=== PATIENT | male | born 1980 | race Hispanic/Latino ===

== ENCOUNTER → 2025-02-02 | Day surgery (SDC) | payer OTHER ==
[~2025-02-02] MED LIST: APRISO0.375 GM PO; FENTANYL CITRATE/PF 100MCG/2 ML INJ ONE; GLUCAGON FOR INJ 1 MG VIAL ONE; HYDROCORTISONE SOD SUCCINATE 100 MG VIAL ONE; HYOSCYAMINE SULFATE 0.5 MG/ML INJ ONE; IMMODIUM PO; LACTATED RINGER'S 1,000 ML ONE; LIDOCAINE HCL 2% LOCAL INJ 5 ML SDV VIAL INJ ONE; MESALAMINE1.2 GM PO; PROPOFOL IV EMULSION 10 MG/ML 20 ML VIAL ONE; PROPOFOL IV EMULSION 50 ML IV ONE; Z.0.ASACOL400 MG PO; Z.0.IMURAN50 MG PO
[2025-02-02 13:28] VITALS: TEMP 98.2
[2025-02-02 13:40] VITALS: BP 120/72
[2025-02-02 13:55] VITALS: PULSE 84; RESP 18; O2SAT 97
[2025-02-02 14:24] LABS: BASOPHILS % 0.2 % (0.0-1.0); EOSINOPHILS # (AUTO) 0.1 (0.0-0.4); EOSINOPHILS % 0.8 % (0.0-6.0); HEMATOCRIT 32.5 % (38.2-49.6); HEMOGLOBIN 9.3 g/dL (14.0-18.0); LYMPHOCYTES # (AUTO) 0.7 (1.0-3.2); MEAN CORPUSCULAR HEMOGLOBIN 20.4 pg (28-32); MEAN CORPUSCULAR HGB CONC 28.6 g/dL (31-35); MEAN CORPUSCULAR VOLUME 71.3 fL (81-99); MONOCYTES # (AUTO) 0.4 (0.2-0.8); MONOCYTES % 4.7 % (4.4-11.3); NEUTROPHILS # (AUTO) 7.2 (2.1-6.9); NEUTROPHILS % 86.1 % (38.7-80.0); PLATELET COUNT 440 x10e3/uL (140-360); RED BLOOD COUNT 4.56 x10e6/uL (4.3-5.7); RED CELL DISTRIBUTION WIDTH 15.8 % (11.7-14.4); WHITE BLOOD COUNT 8.34 x10e3/uL (4.8-10.8)
[2025-02-02 14:43] LABS: % IRON SATURATION 5 % (15-50); IRON 25 ug/dL (65-175); TOTAL IRON BINDING CAPACITY 518 ug/dL (261-478); TRANSFERRIN 370 mg/dL (174-364)
[2025-02-02 15:17] LABS: FOLATE 5.3 ng/mL (7.0-15.4)
[2025-02-02 15:36] LABS: WBC,FECAL (FECAL LACTOFERRIN) POSITIVE (NEGATIVE)
[2025-02-02 16:56] LABS: CDIFF AG QUIK CHEK NEGATIVE (NEGATIVE); CDIFF TOX QUIK CHEK NEGATIVE (NEGATIVE)
[2025-02-03 07:37] LABS: C-REACTIVE PROTEIN 21 mg/L (0-10)
[2025-02-05 13:12] LABS: ENDOMYSIAL ANTIBODIES, IGA Negative (Negative)
[2025-02-05 13:51] LABS: IMMUNOGLOBULIN A 378 mg/dL (90-386); TISSUE TRANSGLUTAMINASE IGA AB <2 U/mL (0-3)
== END | disposition home or self-care (01) ==
LOC: OR 10:56
PROVIDERS: ATTEND Internal Medicine Gastroenterology
DX: K51.90 Ulcerative colitis, unspecified, without complications (principal); K63.5 Polyp of colon; K51.20 Ulcerative (chronic) proctitis without complications; K64.8 Other hemorrhoids; Z71.3 Dietary counseling and surveillance; D64.9 Anemia, unspecified; Z71.9 Counseling, unspecified; E66.01 Morbid (severe) obesity due to excess calories; F17.210 Nicotine dependence, cigarettes, uncomplicated; Z01.810 Encounter for preprocedural cardiovascular examination; Z68.31 Body mass index [BMI] 31.0-31.9, adult
CPT/HCPCS: 36415; 45380; 45385; 82607; 82746; 82784; 83516; 83540; 83630; 83993; 84466; 85025; 85045; 86140; 86256; 87045; 87177; 87324; 87328; 87449; 93005; J1610; J1720; J1980; J2003; J2704 ×2; J3010; J7121; 45384